=== PATIENT | male | born 2000 | race Caucasian/White ===

== ENCOUNTER 2022-03-22 17:30 | Emergency (ER) | payer OTHER, SELFPAY ==
[2022-03-22 17:35] VITALS: BP 133/63; PULSE 80; RESP 16; TEMP 36.7; O2SAT 100
--- NOTE | 2022-03-22 17:47 | ED.URI ---
HPI - URI/Sore Throat General Chief Complaint: Upper Respiratory Infection Stated Complaint: WHITE SPOTS IN THROAT Time Seen by Provider: 03/22/22 17:45 History of Present Illness HPI Narrative: 21 year old male who complained of sore throat since yesterday with some sinus pressure and drainage and rare cough. Patient reports that his parents have had cold symptoms but they have improved. He reports that he noticed some white stuff behind his tonsils and he has painful swallowing. He states that he did have a low grade fever of 99F as highest temperature noted, patient denies any shortness of breath or any body aches. Patient reports that he has had COVID vaccinations and Booster shot. MD elicited complaint: sore throat Onset (ago): day(s) (1) Pain scale (0-10): 4 Related Data Allergies Allergy/AdvReac Type Severity Reaction Status Date / Time No Known Allergies Allergy Verified 03/04/22 15:37 Review of Systems Review of Systems: CONSTITUTIONAL: Low grade fever, chills, or sweats. EYES: Denies visual changes, redness, or discharge. ENT: Positive for rhinorrhea, congestion, sore throat, no otalgia. CARDIOVASCULAR: Denies chest pain, palpitations, or edema. RESPIRATORY: occasional cough denies dyspnea. GASTROINTESTINAL: Denies abdominal pain, nausea, vomiting, or diarrhea. GENITOURINARY: Denies dysuria or hematuria. SKIN: Denies rash or itching. MUSCULOSKELETAL: Denies back pain, joint pain, or myalgia. NEUROLOGIC: Denies headache, numbness, or weakness. PSYCHIATRIC: Denies anxiety or depression. All systems reviewed & are unremarkable except as noted in HPI and below PMFSH Family History Family History Father Hypertension Other Family history of malignant neoplasm of breast Malignant neoplasm of prostate Social History Social History (Updated 03/22/22 @ 18:22 by Darlene Domínguez NP) Smoking status: Never smoker Second hand tobacco smoke exposure: Yes Alcohol intake: never Substance use type: does not use Living arrangements: with family Gender identity (if verbalized by the patient): Male Comments At time of signature, agree with nursing past medical, surgical, social and family history. There is no relevant family history pertinent to the presenting complaint Exam Narrative: GENERAL: Well-appearing, well-nourished, and in no acute distress. HEAD: Normocephalic, atraumatic. EYES: PERRLA and EOMI. ENT: Nares clear, positive rhinorrhea no epistaxis. Mucous membranes moist.TM's normal with good light reflex, throat red with white puss pocket tonsils NECK: Supple.no lymphadenopathy CHEST: Clear to auscultation. No respiratory distress. HEART: Regular rate and rhythm. No murmur heard. Normal peripheral pulses. ABDOMEN: Soft, nontender, nondistended, normal active bowel sounds. EXTREMITIES: Normal range of motion. No edema. SKIN: Warm, dry, no rash. NEURO: No focal deficits. Alert and oriented x3. Course Course Level of Care: Express Care Visit Vital Signs Vital signs: Vital Signs Temperature 36.7 C 03/22/22 17:35 Pulse Rate 80 03/22/22 17:35 Respiratory Rate 16 03/22/22 17:35 Blood Pressure 133/63 03/22/22 17:35 Pulse Oximetry 100 03/22/22 17:35 Oxygen Delivery Room Air 03/22/22 17:35 Temperature 36.7 C 03/22/22 17:35 Pulse Rate 80 03/22/22 17:35 Respiratory Rate 16 03/22/22 17:35 Blood Pressure 133/63 03/22/22 17:35 Pulse Oximetry 100 03/22/22 17:35 Oxygen Delivery Room Air 03/22/22 17:35 MDM - URI/Sore Throat Differential Diagnosis Differential diagnosis: Likely upper respiratory infection and pharyngitis Medical Records Attestation: I reviewed the patient's medical records. Lab Data Attestation: I reviewed the patient's lab results. Lab results narrative: Strep screen negative Labs: Strep Screen Presumptive Negative *(Reference
== END 2022-03-22 18:05 | disposition home or self-care (01) ==
PROVIDERS: Emergency Provider Registered Nurse; PCP Family Medicine
DX: J03.90 Acute tonsillitis, unspecified (principal)
CPT/HCPCS: 87081; 87880; 99213; G0463

== ENCOUNTER 2022-10-22 18:59 | Emergency (ER) | payer OTHER, SELFPAY ==
--- NOTE | ~2022-10-22 | XR_ITS ---
EXAM: XR wrist LT min 3V DATE: 10/22/2022 19:09 HISTORY: fall, left wrist pain radial side . COMPARISON: None available. FINDINGS: Normal mineralization. Mildly displaced ulnar styloid fracture. No lytic or blastic lesion . Joint spaces are maintained. No erosion or periosteal change. Soft tissues within normal limits. IMPRESSION: Mildly displaced left ulnar styloid fracture. Reviewed, dictated and finalized at location K. [employer]ER
--- NOTE | 2022-10-22 19:01 | ED.UPPEXIN ---
HPI - Extremity Injury (Upper) General Chief Complaint: Extremity Injury, Upper Stated Complaint: L WRIST INJURY Time Seen by Provider: 10/22/22 19:01 Source: patient and RN notes reviewed History of Present Illness HPI narrative: Patient is a 22-year-old male who presents to urgent care with complaints of left wrist pain. Patient states that he fell at approximately 6:30 p.m. this evening, tripping over his feet and falling on the asphalt. Patient denies any other pains or injuries from the incident. Patient has not taken anything [id number] for his pain prior to arrival. No other acute complaints. No acute distress noted. Patient aware of the plan of care. Some parts of this dictation were generated by voice recognition software and may contain typographical and/or grammatical inaccuracies. Related Data Home Medications Medication Instructions Recorded Confirmed No Home Medications 10/22/22 10/22/22 Allergies Allergy/AdvReac Type Severity Reaction Status Date / Time No Known Allergies Allergy Verified 10/22/22 19:09 Review of Systems Review of Systems: CONSTITUTIONAL: Denies fever, chills, or sweats. EYES: Denies visual changes, redness, or discharge. ENT: Denies rhinorrhea, congestion, sore throat, or otalgia. CARDIOVASCULAR: Denies chest pain, palpitations, or edema. RESPIRATORY: Denies cough or dyspnea. GASTROINTESTINAL: Denies abdominal pain, nausea, vomiting, or diarrhea. GENITOURINARY: Denies dysuria or hematuria. SKIN: Denies rash or itching. MUSCULOSKELETAL: Reports of left wrist pain due to fall NEUROLOGIC: Denies headache, numbness, or weakness. All other systems reviewed are negative, except as documented in HPI. [facility] Family History Family History Father Hypertension Other Family history of malignant neoplasm of breast Malignant neoplasm of prostate Social History Social History (Updated 03/22/22 @ 18:22 by Darlene Domínguez NP) Smoking status: Never smoker Second hand tobacco smoke exposure: Yes Alcohol intake: never Substance use type: does not use Gender identity (if verbalized by the patient): Male Comments At the time of my signature, I reviewed and agree with the nursing past medical, surgical, social, and family history. There is no relevant family history pertinent to the patient complaint. Exam Narrative: GENERAL: This is a well-nourished, well-developed patient, in no apparent distress. HEAD: normocephalic, atraumatic. EYES: PERRL. Sclera clear/white. Vision is grossly intact. EARS: External ears normal NOSE: External nose normal with no obvious nasal discharge, nares without redness, no rhinorrhea. THROAT: Mucous membranes moist NECK: Neck supple, SKIN: warm, intact with no suspicious lesions or rash, good texture and turgor. NEURO: awake, alert, and oriented to person, place and time. There were no obvious focal neurologic abnormalities. EXTREMITIES: No obvious edema, erythema, ecchymosis or deformity noted to the left upper extremity. Range of motion the left wrist within normal limits without exacerbated pain. Positive strong left radial pulse with capillary refill less than 2 seconds. Course Course Level of Care: Express Care Visit Vital Signs Vital signs: Vital Signs Temperature 99.2 F 10/22/22 19:13 Pulse Rate 70 10/22/22 19:13 Respiratory Rate 16 10/22/22 19:13 Blood Pressure 135/60 10/22/22 19:13 Pulse Oximetry 100 10/22/22 19:13 Temperature 99.2 F 10/22/22 19:14 Pulse Rate 70 10/22/22 19:14 Respiratory Rate 16 10/22/22 19:14 Blood Pressure 135/60 10/22/22 19:14 Pulse Oximetry 100 10/22/22 19:14 Reviewed Procedures Orthopedic Splinting/Casting Injury #1: Side: left Upper Extremity Injury Location: wrist OCL: short arm (Volar) Additional Comments: Volar/posterior short-arm applied to left upper extremity for
[2022-10-22 19:13] VITALS: BP 135/60; PULSE 70; RESP 16; TEMP 37.3; O2SAT 100
[2022-10-22 19:14] VITALS: BP 135/60; PULSE 70; RESP 16; TEMP 37.3; O2SAT 100
== END 2022-10-22 19:48 | disposition home or self-care (01) ==
PROVIDERS: Emergency Provider Nurse Practitioner Family; PCP Family Medicine
DX: S52.612A Displaced fracture of left ulna styloid process, initial encounter for closed fracture (principal); W01.0XXA Fall on same level from slipping, tripping and stumbling without subsequent striking against object, initial encounter
CPT/HCPCS: 29125; 73110; 99214; A4565; G0463